=== PATIENT | male | born 1975 | race Caucasian/White ===

== ENCOUNTER 2024-02-12 09:31 | Emergency (ER) | payer MEDICARE, OTHER ==
[2024-02-12 09:49] VITALS: RESP 18
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
--- NOTE | 2024-02-12 11:05 | XR ---
EXAMINATION TYPE: XR wrist complete LT DATE OF EXAM: 02/12/2024 COMPARISON: NONE HISTORY: 48-year-old male pain TECHNIQUE: 4 views FINDINGS: There is a transverse fracture at the base of the ulnar styloid process with minimal 1 mm o f distraction. The radiocarpal and distal radial ulnar joint as well as the midcarpal compartment jesse ear intact. Mild soft tissue swelling at the wrist. IMPRESSION: Transverse fracture at the base of the ulnar styloid process with minimal, 1 mm of distraction. Some associated soft tissue swelling. [facility], , 02/12/2024 11:03 AM
[2024-02-12 11:32] VITALS: BP 141/80; PULSE 66; TEMP 98.4
== END 2024-02-12 11:32 | disposition home or self-care (01) ==
LOC: EC 09:31
DX: S52.612A Displaced fracture of left ulna styloid process, initial encounter for closed fracture (principal); F17.200 Nicotine dependence, unspecified, uncomplicated; X58.XXXA Exposure to other specified factors, initial encounter
CPT/HCPCS: 29125; 99283

== ENCOUNTER 2024-09-02 09:22 | Emergency (ER) | payer MEDICARE, OTHER ==
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
[2024-09-02] MEDS: KETOROLAC 15 MG/ML 1 ML VIAL IM STA (09:50)
--- NOTE | 2024-09-02 10:19 | XR ---
EXAMINATION TYPE: XR ribs RT w pa chest xray DATE OF EXAM: 09/02/2024 10:02 AM COMPARISON: 09/02/2024. CLINICAL INDICATION: Male, 49 years old with history of Rib pain trauma; [facility], pain TECHNIQUE: XR ribs RT w pa chest xray; Frontal and oblique views of the ribs with frontal chest radio graph. FINDINGS: The ribs have a normal appearance. No evidence of fracture. Overall, the lungs are clear. The cardiac silhouette is normal in size. The remaining osseous structures are intact. IMPRESSION: No acute osseous pathology. [facility], , 09/02/2024 10:17 AM
[2024-09-02 11:23] VITALS: RESP 20
[2024-09-02] MEDS: SODIUM CHLORIDE 0.9% 500 ML 500 ML IV STA (11:57)
[2024-09-02 12:08] LABS: Basophils # (A) 0.06 10*3/uL (0.00-0.10); Basophils % (A) 0.7 %; Eosinophils % (A) 1.1 %; HCT 46.8 % (39.6-50.0); HGB 16.2 g/dL (13.0-17.0); Lymphocytes # (A) 2.99 10*3/uL (0.90-5.00); Lymphocytes % (A) 33.4 %; MCH 32.1 pg (27.0-32.0); MCHC 34.6 g/dL (32.0-37.0); MCV 92.7 fL (80.0-97.0); Mean Platelet Volume 10.7 fL (9.5-12.2); Monocytes # (A) 0.69 10*3/uL (0.20-1.00); Monocytes % (A) 7.7 %; Neutrophils # (A) 5.09 10*3/uL (1.80-7.70); Neutrophils % (A) 56.8 %; Platelet Count 338 10*3/uL (140-440); RBC 5.05 10*6/uL (4.40-5.60); RDW 13.2 % (11.5-14.5); WBC 8.96 10*3/uL (4.50-10.00)
[2024-09-02 12:25] LABS: INR 1.3 (<1.2); Partial Thromboplastin Time 23.8 sec (22.0-30.0); Prothrombin Time 13.3 sec (10.0-12.5)
[2024-09-02 12:37] LABS: ALT 25 U/L (4-49); AST 27 U/L (17-59); African American GFR (CKD) >90 (>60 ml/min/1.73 sqM); Albumin 4.2 g/dL (3.5-5.0); Alkaline Phosphatase 84 U/L (38-126); Anion Gap 8 mmol/L; Blood Urea Nitrogen 13 mg/dL (9-20); Calcium 9.7 mg/dL (8.4-10.2); Carbon Dioxide 30 mmol/L (22-30); Chloride 101 mmol/L (98-107); Glucose 81 mg/dL (74-99); Magnesium 2.1 mg/dL (1.6-2.3); Non-African American GFR(CKD) >90 (>60 ml/min/1.73 sqM); Potassium 4.3 mmol/L (3.5-5.1); Sodium 139 mmol/L (137-145); Total Bilirubin 0.8 mg/dL (0.2-1.3); Total Protein 6.6 g/dL (6.3-8.2)
[2024-09-02 13:09] LABS: Amphetamine Screen,Urine Not Detected (NotDetected); Barbiturate Screen,Urine Not Detected (NotDetected); Benzodiazepines Screen,Urine Not Detected (NotDetected); Cocaine Screen,Urine Not Detected (NotDetected); Methadone Screen, Urine Not Detected (NotDetected); Opiate Screen,Urine Not Detected (NotDetected); Oxycodone Screen, Urine Detected (NotDetected); Phencyclidine Screen,Urine Not Detected (NotDetected); Tricyclic Antidepressant,Urine Not Detected (NotDetected); Urn Cannabinoid Scrn Detected (NotDetected)
[2024-09-02 14:12] VITALS: BP 130/98; PULSE 62; TEMP 98.1
== END 2024-09-02 14:15 | disposition home or self-care (01) ==
LOC: EC 09:22
DX: I47.10 Supraventricular tachycardia, unspecified (principal); R07.81 Pleurodynia; F17.200 Nicotine dependence, unspecified, uncomplicated
CPT/HCPCS: 36415; 93005; 80053; 83735; 84443; 84484; 85025; 85610; 85730; 80306; 71101; 99284; 96372; 96360; 96361; J1885